=== PATIENT | male | born 1990 | race Caucasian/White ===

== ENCOUNTER 2017-07-05 12:37 | Emergency (ER) | payer SELFPAY ==
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
[2017-07-05] MEDS ORDERED: IBUPROFEN 800 MG TABLET PO ONE (13:52)
[2017-07-05] MEDS ORDERED: ACETAMINOPHEN 325 MG TABLET PO ONE (13:52)
[2017-07-05 14:58] VITALS: BP 121/71
--- NOTE | 2017-07-05 15:04 | RADIOLOGY REPORT (SQ) ---
EXAM DESCRIPTION: SHOULDER LEFT 2 OR MORE VIEWS COMPLETED DATE/TIME: 07/05/2017 2:35 pm REASON FOR STUDY: pain left shoulder COMPARISON: None. NUMBER OF VIEWS: Three views. TECHNIQUE: Internal rotation, external rotation, and Y view images acquired of the left shoulder. LIMITATIONS: None. FINDINGS: MINERALIZATION: Normal. BONES: No acute fracture or dislocation. No worrisome bone lesions. JOINTS: No dislocation. VISUALIZED LUNGS AND RIBS: No pneumothorax. No rib fracture. SOFT TISSUES: No radiopaque foreign body. OTHER: No other significant finding. IMPRESSION: NEGATIVE STUDY OF THE LEFT SHOULDER. NO RADIOGRAPHIC EVIDENCE OF ACUTE INJURY. TECHNICAL DOCUMENTATION: JOB ID: [id number] All Rights Reserved
== END 2017-07-05 14:57 | disposition home or self-care (01) ==
LOC: ER 12:37
DX: S46.912A Strain of unspecified muscle, fascia and tendon at shoulder and upper arm level, left arm, initial encounter (principal); M79.602 Pain in left arm; M25.512 Pain in left shoulder; R20.0 Anesthesia of skin; X50.0XXA Overexertion from strenuous movement or load, initial encounter
CPT/HCPCS: 99283

== ENCOUNTER 2017-10-31 14:25 | Emergency (ER) | payer BC ==
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
--- NOTE | 2017-10-31 17:21 | RADIOLOGY REPORT (SQ) ---
EXAM DESCRIPTION: VENOUS UNILATERAL LOWER COMPLETED DATE/TIME: 10/31/2017 5:12 pm REASON FOR STUDY: LLE pain, L calf pain, hx crush inj to L thigh COMPARISON: None. TECHNIQUE: Dynamic and static werner scale and color images acquired of the left leg venous system. Se lected spectral images acquired with additional compression and augmentation maneuvers. The contralat eral common femoral vein and saphenofemoral junction were also imaged. Images stored on PACS. LIMITATIONS: None. FINDINGS: COMMON FEMORAL: Normal phasicity, compression and augmentation. No visualized echogenic ma terial on werner scale. No defects on color images. FEMORAL: Normal compression and augmentation. No visualized echogenic material on werner scale. No defe cts on color images. POPLITEAL: Normal compression, augmentation. No visualized echogenic material on werner scale. No defec ts on color images. CALF VESSELS: Normal compression, augmentation. No visualized echogenic material on werner scale. No de fects on color images. GSV and SSV: Normal compression, augmentation. No visualized echogenic material on werner scale. No def ects on color images. ANY DEEP VENOUS INSUFFICIENCY: Not evaluated. ANY EVIDENCE OF POPLITEAL CYST: No. OTHER: No other significant finding. CONTRALATERAL COMMON FEMORAL VEIN AND SAPHENOFEMORAL JUNCTION: Normal phasicity, compression and augmentation. No visualized echogenic material on werner scale. No de fects on color images. IMPRESSION: NO EVIDENCE OF DVT OR SVT IN THE LEFT LEG. TECHNICAL DOCUMENTATION: JOB ID: [id number] [employer]- All Rights Reserved Reading location - IP/workstation name: [email or web address]
[2017-10-31 17:42] VITALS: BP 136/107
== END 2017-10-31 17:42 | disposition home or self-care (01) ==
LOC: ER 14:25
DX: M79.605 Pain in left leg (principal); R20.0 Anesthesia of skin; W23.0XXA Caught, crushed, jammed, or pinched between moving objects, initial encounter
CPT/HCPCS: 93971; 99283

== ENCOUNTER 2018-01-27 23:17 | Emergency (ER) | payer BC ==
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
[2018-01-27 23:55] LABS: ABSOLUTE BASOPHILS # (AUTO) 0.1 10^3/uL (0.0-0.2); ABSOLUTE EOSINOPHILS # (AUTO) 0.1 10^3/uL (0.0-0.6); ABSOLUTE LYMPHOCYTES (AUTO) 1.3 10^3/uL (0.5-4.7); ABSOLUTE MONOCYTES (AUTO) 0.6 10^3/uL (0.1-1.4); ABSOLUTE NEUT (AUTO) 5.6 10^3/uL (1.7-8.2); BASOPHILS % (AUTO) 0.8 % (0-2); EOSINOPHILS % (AUTO) 1.6 % (0-6); HEMATOCRIT 39.2 % (37.9-51.0); HEMOGLOBIN 13.3 g/dL (13.5-17.0); LYMPHOCYTES % (AUTO) 17.2 % (13-45); MEAN CORPUSCULAR HEMOGLOBIN 29.8 pg (27.0-33.4); MEAN CORPUSCULAR HGB CONC 33.9 g/dL (32.0-36.0); MEAN CORPUSCULAR VOLUME 88 fl (80-97); MONOCYTES % (AUTO) 7.3 % (3-13); PLATELET COUNT 239 10^3/uL (150-450); RED BLOOD COUNT 4.47 10^6/uL (4.35-5.55); RED CELL DISTRIBUTION WIDTH 13.4 % (11.5-14.0); SEGMENTED NEUTROPHILS % (AUTO) 73.1 % (42-78); TOTAL CELLS COUNTED % (AUTO) 100 %; WHITE BLOOD COUNT 7.6 10^3/uL (4.0-10.5)
[2018-01-28 00:22] LABS: ALANINE AMINOTRANSFERASE 23 U/L (21-72); ALBUMIN 4.4 g/dL (3.5-5.0); ALKALINE PHOSPHATASE 55 U/L (38-126); ANION GAP 14 (5-19); ASPARTATE AMINO TRANSFERASE 27 U/L (17-59); BILIRUBIN,DIRECT 0.3 mg/dL (0.0-0.4); BILIRUBIN,TOTAL 0.7 mg/dL (0.2-1.3); BLOOD UREA NITROGEN 12 mg/dL (7-20); CALCIUM 9.7 mg/dL (8.4-10.2); CARBON DIOXIDE 24 mmol/L (22-30); CHLORIDE 106 mmol/L (98-107); GLUCOSE 96 mg/dL (75-110); POTASSIUM 3.1 mmol/L (3.6-5.0); SODIUM 144.1 mmol/L (137-145); TOTAL PROTEIN 7.3 g/dL (6.3-8.2)
[2018-01-28 00:26] LABS: ACETAMINOPHEN < 10 ug/mL (10-30); ALCOHOL < 10 mg/dL (NONE DETECTED); SALICYLATE < 1.0 mg/dL (2.0-20.0)
[2018-01-28] MEDS ORDERED: POTASSIUM CHLORIDE 10 MEQ CAPSULE.ER PO ONE (04:19)
[2018-01-28 04:37] LABS: APPEARANCE,URINE SLIGHTLY-CLOUDY; BILIRUBIN,URINE NEGATIVE (NEGATIVE); CALCIUM OXALATE CRYSTALS,URINE FEW /HPF; COLOR,URINE YELLOW; GLUCOSE, URINE NEGATIVE (NEGATIVE); KETONES,URINE NEGATIVE (NEGATIVE); LEUKOCYTE ESTERASE,URINE NEGATIVE (NEGATIVE); NITRITE,URINE NEGATIVE (NEGATIVE); PROTEIN,URINE NEGATIVE (NEGATIVE); URINE SPECIFIC GRAVITY 1.029; UROBILINOGEN,URINE NEGATIVE mg/dL (<2.0)
[2018-01-28 04:38] LABS: URINE AMPHETAMINES SCREEN NEGATIVE; URINE BARBITURATES SCREEN NEGATIVE; URINE BENZODIAZEPINES SCREEN UNCONFIRMED POSITIVE; URINE COCAINE SCREEN NEGATIVE; URINE MARIJUANA (THC) SCREEN UNCONFIRMED POSITIVE; URINE METHADONE SCREEN NEGATIVE; URINE PHENCYCLIDINE SCREEN NEGATIVE
--- NOTE | 2018-01-28 08:00 | EKG REPORT ---
SEVERITY:- NORMAL ECG - SINUS RHYTHM : Confirmed by: Rosi Cabral MD 28-Jan-2018 07:59:45
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
[2018-01-28] MEDS: OLANZAPINE 5 MG TABLET PO SCH ×2 (10:34→17:18)
[2018-01-28] MEDS: BENZTROPINE MESYLATE 1 MG TABLET PO SCH (10:34)
--- NOTE | 2018-01-29 09:23 | ER Document Report ---
Doctor's Note Notes: 01/29/18 09:22 Vital signs are stable. Patient is calm and cooperative at this time. Medications have been started yesterday. Waiting for psychiatry/psychology's reassessment. 01/29/18 11:53 Psychology team is seen and evaluated the patient by the head psychologist. She does not feel that the patient is a harm to himself or others at this time. Patient is denying any homicidal suicidal ideations at this time. She will have mobile crisis attempt to product picker the patient from the waiting room. She will provide outpatient psychological follow-up resources. Strict return precautions have been explained to the patient.
[2018-01-29] MEDS: OLANZAPINE 5 MG TABLET PO SCH (10:13)
[2018-01-29] MEDS: BENZTROPINE MESYLATE 1 MG TABLET PO SCH (10:13)
[2018-01-29 12:23] VITALS: BP 131/75
== END 2018-01-29 12:23 | disposition home or self-care (01) ==
LOC: ER 23:17
DX: F43.21 Adjustment disorder with depressed mood (principal); S00.81XA Abrasion of other part of head, initial encounter; X83.8XXA Intentional self-harm by other specified means, initial encounter; R45.851 Suicidal ideations; Z63.0 Problems in relationship with spouse or partner
CPT/HCPCS: 36415; 80053; 80307; 81001; 85025; 93005; 93010; 99285

== ENCOUNTER 2018-08-21 17:06 | Emergency (ER) | payer BC ==
[2018-08-21 17:14] VITALS: BP 127/78
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
== END 2018-08-21 18:20 | disposition home or self-care (01) ==
LOC: ER 17:06
DX: M79.605 Pain in left leg (principal); Z87.828 Personal history of other (healed) physical injury and trauma; F17.200 Nicotine dependence, unspecified, uncomplicated
CPT/HCPCS: 99283

== ENCOUNTER 2018-11-04 13:08 | Emergency (ER) | payer BC ==
[2018-11-04 13:25] VITALS: BP 134/65
[2018-11-04] MEDS ORDERED: GABAPENTIN 300 MG CAPSULE PO ONE (14:17)
--- NOTE | 2018-11-04 14:22 | ER Document Report ---
HPI - HPI Patient complains to provider of: Left lower leg pain Time Seen by Provider: 11/04/18 13:56 Onset/Duration: Persistent Quality of pain: Achy Pain Level: 4 Context: Patient states that over a year ago he had a roberto fall on his leg causing nerve damage. Patient states he has had persistent leg pain off and on since then that became daily over the past few weeks. Patient denies any new injury. Patient states that he had been taking gabapentin did help manage his pain symptoms. Patient denies any fever. Patient denies any chest pain or shortness of breath. No history of DVT or PE in the past. Patient denies any recent travel. Associated Symptoms: Other - Left lower leg pain. denies: Chest pain, Fever, Shortness of breath Exacerbated by: Movement Relieved by: Denies Similar symptoms previously: Yes Recently seen / treated by doctor: No - ROS ROS below otherwise negative: Yes Systems Reviewed and Negative: Yes All other systems reviewed and negative - CONSTITUTIONAL Constitutional: DENIES: Fever - CARDIOVASCULAR Cardiovascular: DENIES: Chest pain - RESPIRATORY Respiratory: DENIES: Coughing - GASTROINTESTINAL Gastrointestinal: DENIES: Patient vomiting - MUSCULOSKELETAL Musculoskeletal: REPORTS: Extremity pain. DENIES: Swelling - DERM Skin Color: Normal Skin Problems: None Past Medical History - General Information source: Patient - Social History Smoking Status: Never Smoker Frequency of alcohol use: None Drug Abuse: None Occupation: [employer] Lives with: Family Family History: Reviewed & Not Pertinent Neurological Medical History: Reports: Other - Nerve damage to left lower extremity Renal/ Medical History: Denies: Hx Peritoneal Dialysis Psychiatric Medical History: Reports: Hx Attention Deficit Hyperactivity Disorder, Hx Depression Past Surgical History: Reports: Hx Appendectomy - Immunizations Immunizations up to date: Yes Hx Diphtheria, Pertussis, Tetanus Vaccination: Yes Vertical Provider Document - CONSTITUTIONAL Agree With Documented VS: Yes Exam Limitations: No Limitations General Appearance: WD/WN, No Apparent Distress - INFECTION CONTROL TRAVEL OUTSIDE OF THE [place] IN LAST 30 DAYS: No - HEENT HEENT: Atraumatic, Normocephalic - NECK Neck: Normal Inspection - RESPIRATORY Respiratory: Breath Sounds Normal, No Respiratory Distress - CARDIOVASCULAR Cardiovascular: Regular Rate, Regular Rhythm Pulses: Normal: Dorsalis pedis - MUSCULOSKELETAL/EXTREMETIES Musculoskeletal/Extremeties: MAEW, FROM, Tender - With generalized leg tenderness from distal third of femur distally to his foot. Patient with normal skin color and temperature to the left lower extremity. Motor strength and muscle tone, No Edema. negative: Eccymosis - NEURO Level of Consciousness: Awake, Alert, Appropriate Motor/Sensory: No Motor Deficit - DERM Integumentary: Warm, Dry Course - Re-evaluation Re-evalutation: 11/04/18 14:18 Patient does report previously being treated for chronic nerve pain with gabapentin and states that this did seem to help his pain symptoms. Consulted with Dr. Orellana regarding patient presentation. Does not recommend any additional diagnostic testing at this time. Does recommend restarting gabapentin and referring to a primary doctor for chronic nerve pain management. Patient without any new injury. No findings worrisome for DVT. Patient is agreeable with discharge plan of care at this time. - Vital Signs Vital signs: Temp Pulse Resp BP Pulse Ox 98.0 F 80 18 134/65 H 97 11/04/18 13:23 11/04/18 13:23 11/04/18 13:23 11/04/18 13:23 11/04/18 13:23 Discharge - Discharge Clinical Impression: Nerve injury, Chronic pain of left lower extremity Condition: Stable Disposition: HOME, SELF-CARE Instructions: Chronic Pain Control ([facility]), Family Physicians / Practices Additional Instructions: Return immediately for any new or worsening symptoms Followup with your primary care provider, call tomorrow to make a followup appointment Prescriptions: Gabapentin [Neurontin 300 mg Capsule] 300 mg PO Q12 #60 capsule Forms: Return to Work [facility] [Provider Group] - Follow up as needed
== END 2018-11-04 14:54 | disposition home or self-care (01) ==
LOC: ER 13:08
DX: T14.8XXA Other injury of unspecified body region, initial encounter (principal); W20.8XXA Other cause of strike by thrown, projected or falling object, initial encounter; M79.662 Pain in left lower leg; G89.29 Other chronic pain
CPT/HCPCS: 99283

== ENCOUNTER 2019-02-08 11:31 | Emergency (ER) | payer BC ==
[2019-02-08 11:44] VITALS: BP 119/64
--- NOTE | 2019-02-08 12:06 | ER Document Report ---
HPI - HPI Patient complains to provider of: Insect bites rash Time Seen by Provider: 02/08/19 11:53 Onset: Other Onset/Duration: Sudden Quality of pain: No pain Context: This 28-year-old male presents emergency department with complaints of insect bites. Patient reports he is itching. Denies fever vomiting diarrhea. Reports he has a dog that could have fleas. 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 Associated Symptoms: None Exacerbated by: Denies Relieved by: Denies Similar symptoms previously: No Recently seen / treated by doctor: No - CONSTITUTIONAL Constitutional: DENIES: Fever, Chills Past Medical History - General Information source: Patient - Social History Smoking Status: Current Every Day Smoker Cigarette use (# per day): Yes Frequency of alcohol use: None Drug Abuse: None Occupation: refuse collector Lives with: Family Family History: Reviewed & Not Pertinent Patient has suicidal ideation: No Patient has homicidal ideation: No Renal/ Medical History: Denies: Hx Peritoneal Dialysis Psychiatric Medical History: Reports: Hx Attention Deficit Hyperactivity Disorder, Hx Depression Past Surgical History: Reports: Hx Appendectomy - Immunizations Immunizations up to date: Yes Hx Diphtheria, Pertussis, Tetanus Vaccination: Yes Vertical Provider Document - CONSTITUTIONAL Agree With Documented VS: Yes Exam Limitations: No Limitations General Appearance: WD/WN, No Apparent Distress - INFECTION CONTROL TRAVEL OUTSIDE OF THE [place] IN LAST 30 DAYS: No - HEENT HEENT: Atraumatic, Normocephalic. negative: Conjuctival Injection - NECK Neck: Normal Inspection, Supple. negative: Lymphadenopathy-Left, Lymphadenopathy-Right - RESPIRATORY Respiratory: Breath Sounds Normal, No Respiratory Distress - CARDIOVASCULAR Cardiovascular: Regular Rate, Regular Rhythm - GI/ABDOMEN Gastrointestinal: Abdomen Soft, Abdomen Non-Tender - BACK Back: Normal Inspection - MUSCULOSKELETAL/EXTREMETIES Musculoskeletal/Extremeties: MAEW, FROM, Non-Tender - NEURO Level of Consciousness: Awake, Alert, Appropriate Motor/Sensory: No Motor Deficit - DERM Integumentary: Warm, Dry, Rash Adult Front & Back Diagram: 1 - Shingles rashsmall vesicles with erythema noted no open sores Notes: insect bites to bilateral forearms one on each forearm 1 to the right lower abdomen and one to his right shoulder. No open sores no wounds no vesicles to the insect bites no pustules. Course - Re-evaluation Re-evalutation: 02/08/19 12:09 28-year-old male presented for complaints of insect bites. Upon review of skin noted shingles rash to his upper back. Patient reports he has had shingles in the past. Reports he had chickenpox when he was younger. Several separate insect bites noted. Patient had one insect bite to the right forearm left forearm right shoulder and right lower abdomen. No open wounds no sores. No pustules. Shingles rash to his upper back with tiny little vesicles. Patient reports he is taking ache Cyclovir in the past. Denies allergies. He was instructed on importance of monitoring the sites. He reports he has been taking Benadryl without relief of symptoms so he was prescribed some Vistaril. He verbalized understanding to all instructions. He was instructed not to take Vistaril and Benadryl. Dictation of this chart was performed using voice recognition software; therefore, there may be some unintended grammatical errors. - Vital Signs Vital signs: Temp Pulse Resp BP Pulse Ox 97.8 F 57 L 16 119/64 98 02/08/19 11:37 02/08/19 11:37 02/08/19 11:37 02/08/19 11:37 02/08/19 11:37 Discharge - Discharge Clinical Impression: Insect bites Shingles Qualifiers: Herpes zoster complications: without complications Qualified Code(s): B02.9 - Zoster without complications Condition: Stable Disposition: HOME, SELF-CARE Instructions: Acyclovir ([facility]), Antihistamines ([facility]), Insect Bites ([facility]) Additional Instructions: *You have been treated for shingles to your back and insect bites *Take medication as prescribed *Avoid itching, avoid hot showers, use insect repellent while working. *Follow up with a primary care provider in 5 days *Return to ED for signs of infection, worsening condition, changes, needs Prescriptions: Acyclovir [Acyclovir 400 mg Tablet] 800 mg PO 5XD #70 tablet Hydroxyzine Pamoate [Vistaril 25 mg Capsule] 25 mg PO TID #10 capsule Forms: Return to Work
== END 2019-02-08 12:15 | disposition home or self-care (01) ==
LOC: ER 11:31
DX: S50.862A Insect bite (nonvenomous) of left forearm, initial encounter (principal); S50.861A Insect bite (nonvenomous) of right forearm, initial encounter; S30.861A Insect bite (nonvenomous) of abdominal wall, initial encounter; S40.261A Insect bite (nonvenomous) of right shoulder, initial encounter; W57.XXXA Bitten or stung by nonvenomous insect and other nonvenomous arthropods, initial encounter; B02.9 Zoster without complications; F17.210 Nicotine dependence, cigarettes, uncomplicated
CPT/HCPCS: 99281

== ENCOUNTER 2019-03-09 15:01 | Emergency (ER) | payer BC ==
[2019-03-09 15:11] VITALS: BP 108/54
[2019-03-09] MEDS ORDERED: HYDROCODONE/ACETAMINOPHEN 5-325 MG TABLET PO ONE (15:40)
[2019-03-09] MEDS ORDERED: PENICILLIN V POTASSIUM 500 MG TABLET PO ONE (15:40)
--- NOTE | 2019-03-09 15:45 | ER Document Report ---
HPI - HPI Time Seen by Provider: 03/09/19 15:30 Pain Level: 3 Context: Patient is a 20-year-old male presents emergency department with a chief complaint of broken tooth. Patient states about 2 hours prior to arrival he was attempting to open a go-cart package with his front teeth when 1 of his teeth broke. Patient states he is having severe pain. Patient does report poor dentition. Patient states he does not regularly go to a dentist. Patient states he feels like he can feel the root of his tooth. Patient has fever or facial swelling. Past Medical History - General Information source: Patient - Social History Smoking Status: Current Every Day Smoker Frequency of alcohol use: None Drug Abuse: Marijuana Lives with: Family Family History: Reviewed & Not Pertinent Patient has suicidal ideation: No Patient has homicidal ideation: No - Past Medical History Cardiac Medical History: Reports: None Pulmonary Medical History: Reports: None EENT Medical History: Reports: None Neurological Medical History: Reports: None Endocrine Medical History: Reports: None Renal/ Medical History: Reports: None. Denies: Hx Peritoneal Dialysis Malignancy Medical History: Reports None GI Medical History: Reports: None Musculoskeletal Medical History: Reports None Skin Medical History: Reports None Psychiatric Medical History: Reports: Hx Attention Deficit Hyperactivity Disorder, Hx Depression Traumatic Medical History: Reports: None Infectious Medical History: Reports: None Past Surgical History: Reports: Hx Appendectomy - Immunizations Immunizations up to date: Yes Hx Diphtheria, Pertussis, Tetanus Vaccination: Yes Vertical Provider Document - CONSTITUTIONAL Agree With Documented VS: Yes Exam Limitations: No Limitations General Appearance: No Apparent Distress - INFECTION CONTROL TRAVEL OUTSIDE OF THE [place] IN LAST 30 DAYS: No - HEENT HEENT: Atraumatic, Normal ENT Exam, Normocephalic, PERRLA Mouth Diagram: 1 - BROKEN TOOTH POSTERIORLY AT THE ROOT, TOOTH IS STILL ATTACHED. - RESPIRATORY Respiratory: Breath Sounds Normal, No Respiratory Distress - CARDIOVASCULAR Cardiovascular: Regular Rate, Regular Rhythm - GI/ABDOMEN Gastrointestinal: Abdomen Soft, Abdomen Non-Tender, Normal Bowel Sounds - NEURO Level of Consciousness: Awake, Alert, Appropriate - DERM Integumentary: Warm, Dry, No Rash Course - Re-evaluation Re-evalutation: 03/09/19 16:17 We will start patient on oral antibiotics as well as pain medication. I did inform the patient also take ibuprofen as this is a good anti-inflammatory. I did inform the patient only take the narcotic medication if he is having severe pain. Ultimately I told the patient needs to follow-up with a dentist as he needs to have the teeth pulled. Patient does have poor dentition throughout his whole mouth and teeth that appear to be rotting. There was no gum swelling or facial edema. - Vital Signs Vital signs: Temp Pulse Resp BP Pulse Ox 98.4 F 61 20 108/54 L 97 03/09/19 15:10 03/09/19 15:10 03/09/19 15:10 03/09/19 15:10 03/09/19 15:10 Discharge - Discharge Clinical Impression: Poor dentition Broken tooth Qualifiers: Encounter type: initial encounter Fracture type: open Qualified Code(s): S02.5XXB - Fracture of tooth (traumatic), initial encounter for open fracture Condition: Stable Disposition: HOME, SELF-CARE Instructions: Oral Narcotic Medication ([facility]), Penicillin V K ([facility]), Toothache ([facility]) Additional Instructions: Today you were seen in the emergency department for a broken tooth. Part of the root is exposed. This can be painful. He will be placed on oral antibiotics called to penicillin VK which she will take twice a day for the next 10 days. You are also being prescribed oral narcotics. Medication your begin for pain is W[place]. [place]ly is a narcotic and can make you drowsy. Do not drive or operate heavy machinery while on this medication. Only take this medication if you have severe pain. Please also take ibuprofen as this is a good anti-inflammatory. Ultimately you do need to see a dentist. Please call local dentist tomorrow to make an appointment. Please return to emergency department if you develop major swelling to the face, increasing pain that is not controlled, a lump in the gum or jaw, headache or fever. Toothache Your pain is due to dental decay. The tooth must be repaired in order for you to feel better. You will, therefore, be referred to a dentist. Severe swelling or drainage around a tooth usually means a deep dental abscess. This also requires evaluation and treatment by the dentist, but antibiotics may be prescribed while awaiting dental treatment. You should be rechecked immediately if you develop major swelling of the face, increasing pain, a lump in the jaw or gums, headache, or fever. Prescriptions: Hydrocodone/Acetaminophen [[place] 5-325 mg Tablet] 1 tab PO Q6 PRN #6 tablet PRN Reason: For Pain Penicillin V Potassium [Penicillin Vk 500 mg Tablet] 500 mg PO BID #20 tablet Forms: Smoking Cessation Education Referrals: [facility] [Provider Group] - Follow up as needed [facility] [Provider Group] - Follow up as needed
[2019-03-09] MEDS ORDERED: HYDROCODONE/ACETAMINOPHEN 5-325 MG (6 TAB/ER DISP) PO ONE (16:08)
[2019-03-09] MEDS ORDERED: HYDROCODONE/ACETAMINOPHEN 5-325 MG (6 TAB/ER DISP) PO SCH ×2 (16:30→18:00)
== END 2019-03-09 16:15 | disposition home or self-care (01) ==
LOC: ER 15:01
DX: S02.5XXB Fracture of tooth (traumatic), initial encounter for open fracture (principal); K02.9 Dental caries, unspecified; W22.8XXA Striking against or struck by other objects, initial encounter; F17.200 Nicotine dependence, unspecified, uncomplicated
CPT/HCPCS: 99282

== ENCOUNTER 2020-04-05 11:44 | Emergency (ER) | payer BC ==
[2020-04-05 11:59] VITALS: BP 128/84
[2020-04-05] MEDS ORDERED: KETOROLAC TROMETHAMINE 60 MG/2 ML SDV IM ONE (12:50)
--- NOTE | 2020-04-05 13:27 | RADIOLOGY REPORT (SQ) ---
EXAM DESCRIPTION: L SPINE WHOLE IMAGES COMPLETED DATE/TIME: 04/05/2020 1:08 pm REASON FOR STUDY: low back pain COMPARISON: None. NUMBER OF VIEWS: Five views including obliques. TECHNIQUE: AP, lateral, oblique, and sacral radiographic images acquired of the lumbar spine. LIMITATIONS: None. FINDINGS: MINERALIZATION: Normal. SEGMENTATION: Normal. No transitional anatomy. ALIGNMENT: Normal. VERTEBRAE: Maintained height. No fracture or worrisome bone lesion. DISCS: Preserved height. No significant osteophytes or end plate irregularity. POSTERIOR ELEMENTS: Pedicles and facets are intact. No pars defect or posterior arch defects. HARDWARE: None in the spine. PARASPINAL SOFT TISSUES: Right lower quadrant surgical clips. PELVIS: Intact as visualized. No fractures or worrisome bone lesions. SI joints intact. OTHER: No other significant finding. IMPRESSION: No evidence of acute osseous injury or significant degenerative change. TECHNICAL DOCUMENTATION: JOB ID: [id number] 2010 [employer]- All Rights Reserved Reading location - IP/workstation name: [email or web address]
--- NOTE | 2020-04-05 13:48 | ER Document Report ---
HPI - HPI Patient complains to provider of: Back pain Time Seen by Provider: 04/05/20 12:43 Pain Level: 4 Notes: 29-year-old male to the emergency department with complaints of lower back pain that began yesterday and got worse after he was working today. 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 He states when he twists or turns and bends it is a lot more painful. Some radiation into the buttocks but not completely down the leg. Denies any saddle paresthesia, fevers chills, IV drug abuse, bladder bowel incontinence. States he is taking [id number] pain medicine for relief as well as had his significant other massage him and put warm compress on it. - ROS Systems Reviewed and Negative: Yes All other systems reviewed and negative - CONSTITUTIONAL Constitutional: DENIES: Fever, Chills - EENT EENT: DENIES: Sore Throat, Ear Pain, Congestion - NEURO Neurology: DENIES: Headache, Weakness - CARDIOVASCULAR Cardiovascular: DENIES: Chest pain - RESPIRATORY Respiratory: DENIES: Trouble Breathing, Coughing - GASTROINTESTINAL Gastrointestinal: DENIES: Abdominal Pain, Nausea, Patient vomiting, Diarrhea - URINARY Urinary: DENIES: Dysuria, Urgency, Frequency - MUSCULOSKELETAL Musculoskeletal: REPORTS: Back Pain - DERM Skin Color: Normal Skin Problems: None Past Medical History - General Information source: Patient - Social History Smoking Status: Current Every Day Smoker Frequency of alcohol use: None Drug Abuse: None Family History: Reviewed & Not Pertinent Renal/ Medical History: Denies: Hx Peritoneal Dialysis Psychiatric Medical History: Reports: Hx Attention Deficit Hyperactivity Disorder, Hx Depression Past Surgical History: Reports: Hx Appendectomy - Immunizations Immunizations up to date: Yes Hx Diphtheria, Pertussis, Tetanus Vaccination: Yes Vertical Provider Document - CONSTITUTIONAL Agree With Documented VS: Yes Exam Limitations: No Limitations General Appearance: WD/WN Notes: Ambulates into triage without difficulty - INFECTION CONTROL TRAVEL OUTSIDE OF THE [place] IN LAST 30 DAYS: No - HEENT HEENT: Atraumatic, Normocephalic, PERRLA - NECK Neck: Normal Inspection, Supple - RESPIRATORY Respiratory: Breath Sounds Normal, No Respiratory Distress. negative: Rales, Rhonchi, Wheezing - CARDIOVASCULAR Cardiovascular: Regular Rate, Regular Rhythm, No Murmur - GI/ABDOMEN Gastrointestinal: Abdomen Soft, Abdomen Non-Tender - BACK Notes: There is no midline tenderness to palpation over the cervical or thoracic spine. There is tenderness to palpation to the midline lumbar spine. Negative straight leg raise bilaterally. - MUSCULOSKELETAL/EXTREMETIES Musculoskeletal/Extremeties: SEVERINO SWAN - NEURO Level of Consciousness: Awake, Alert Motor/Sensory: No Motor Deficit, No Sensory Deficit - DERM Integumentary: Warm, Dry Course - Re-evaluation Re-evalutation: Impression: Lumbar back strain. X-ray reassuring. Will send home with muscle relaxants and pain meds. Encouraged rest and no lifting greater than a gallon of milk. Give information for follow-up with an orthopedist. Patient agrees with the plan. - Vital Signs Vital signs: Temp Pulse Resp BP Pulse Ox 98.1 F 54 L 18 128/84 H 99 04/05/20 11:58 04/05/20 11:58 04/05/20 11:58 04/05/20 11:58 04/05/20 11:58 - Laboratory Laboratory results interpreted by me: Lumbar Spine X-Ray 04/05/20 12:50 IMPRESSION: No evidence of acute osseous injury or significant degenerative change. - Diagnostic Test Radiology reviewed: Image reviewed Discharge - Discharge Clinical Impression: Lumbar back sprain Qualifiers: Encounter type: initial encounter Qualified Code(s): S33.5XXA - Sprain of ligaments of lumbar spine, initial encounter Low back pain Qualifiers: Chronicity: acute Back pain laterality: midline Sciatica presence: without sciatica Qualified Code(s): M54.5 - Low back pain Condition: Stable Disposition: HOME, SELF-CARE Instructions: Low Back Pain ([facility]), Muscle Strain ([facility]) Additional Instructions: Take medicine as prescribed. Follow-up with orthopedist as listed below. Return if any worsening symptoms. No lifting greater than 7 pounds for 1 week. Prescriptions: Cyclobenzaprine HCl [Flexeril 10 mg Tablet] 10 mg PO TID #15 tablet Lidocaine [Lidoderm 5% (700 mg) Transdermal Patch] 1 patch TP DAILY #30 adh..patch Hydrocodone/Acetaminophen [[place] 5-325 mg Tablet] 1 tab PO Q6H #12 tablet Forms: Return to Work Referrals: PARESH KOHLER JR, DO [ACTIVE PROVISIONAL STAFF] - Follow up in 1 week
== END 2020-04-05 13:58 | disposition home or self-care (01) ==
LOC: ER 11:44
DX: S33.5XXA Sprain of ligaments of lumbar spine, initial encounter (principal); X58.XXXA Exposure to other specified factors, initial encounter; F17.200 Nicotine dependence, unspecified, uncomplicated
CPT/HCPCS: 99284; 96372; 72110; J1885